=== PATIENT | male | born 1980 ===

== ENCOUNTER 2017-11-23 15:20 | Emergency (ER) ==
--- NOTE | 2017-11-23 18:38 | EKG REPORT ---
SEVERITY:- ABNORMAL ECG - SINUS RHYTHM NONSPECIFIC IVCD WITH LAD NONSPECIFIC LATERAL ST-T CHANGES : Confirmed by: Donta Collado MD 23-Nov-2017 18:37:58
== END 2017-11-23 18:14 | disposition left against medical advice (07) ==
LOC: ER 15:20
DX: Z53.21 Procedure and treatment not carried out due to patient leaving prior to being seen by health care provider (principal)
CPT/HCPCS: 93005; 93010